=== PATIENT | female | born 1950 | race Caucasian/White ===

== ENCOUNTER 2016-08-29 15:30 | Outpatient (CLI) | payer MEDICARE, BC | END 2016-08-29 15:31 | disposition home or self-care (01) | DX: Z12.31 Encounter for screening mammogram for malignant neoplasm of breast (principal) ==

== ENCOUNTER 2016-12-27 13:44 | Outpatient (CLI) | payer MEDICARE, BC ==
--- NOTE | 2016-12-27 17:54 | MRI Report ---
EXAM: MRI CERVICAL SPINE WITHOUT CONTRAST EXAM DATE: 12/27/2016 02:07 PM. CLINICAL HISTORY: STRAIN OF MUSCLE FASCIA TENDON AT NECK LEVEL. COMPARISONS: MR cervical spine 09/29/2011. TECHNIQUE: Multiplanar, multisequence T1-weighted and fluid-sensitive sequences of the cervical spine without contrast. Other: None. FINDINGS: Neurologic Structures: There is mild flattening of the ventral aspect of the cervical cord seen at C4 -C5 and C5-C6 with no definite T2 signal hyperintensity seen. The remainder of the cervical cord appe ars normal in contour, caliber, and signal intensity. Alignment: Normal. No scoliosis or spondylolisthesis. Bone Marrow: No gross fractures or bone lesions. No marrow edema. Interspace Levels/Facets: C1-C2: Unremarkable on sagittal sequences. C2-C3: No significant endplate degenerative changes. Disk height appears preserved. Disk desiccation. Minimal posterior disk osteophyte complex slight effacement of the ventral thecal sac. Right uncover tebral osteophyte and arthritic facet disease producing mild right neural foraminal narrowing. Findin gs appear progressed from 09/29/2011. C3-C4: No significant endplate degenerative changes. Disk height appears preserved. Disk desiccation. Minimal posterior disk osteophyte complex with slight effacement of the ventral thecal sac. Bilatera l uncovertebral osteophyte and arthritic facet disease producing moderate right and mild left neural foramina narrowing. Findings appear progressed. C4-C5: Minimal endplate degenerative changes. Mild loss of disk height. Disk desiccation. Small poste rior disk osteophyte complex, ligamentum flavum thickening, and arthritic facet disease producing mod erate spinal canal stenosis. Bilateral uncovertebral osteophyte and arthritic facet disease producing severe left and moderate to severe right neural foraminal narrowing. Findings have progressed. C5-C6: Mild endplate degenerative changes. Mild loss of disk height. Disk desiccation. Small posterio r disk osteophyte complex as well as ligamentum flavum thickening producing moderate spinal canal ridge nosis. Bilateral uncovertebral osteophyte and arthritic facet disease producing severe bilateral neur al foraminal narrowing. Findings appear progressed. C6-C7: No significant endplate degenerative changes. Minimal loss of disk height. Disk desiccation. S mall posterior disk osteophyte complex producing mild spinal canal stenosis. Bilateral uncovertebral osteophyte and degenerative facet disease producing moderate left and mild right foraminal narrowing. Findings appear progressed. C7-T1: Unremarkable. Musculature: Normal. No edema or fatty atrophy. Other: The paravertebral and prevertebral soft tissues are normal. IMPRESSION: 1. Mild flattening of the ventral aspect of the cervical cord seen at C4-C5 and C5-C6 with no definit e T2 signal hyperintensity seen. 2. Mild multilevel degenerative changes at appear progressed from 09/29/2011. C2-C3: No significant spinal canal stenosis. Mild right neural foraminal narrowing. C3-C4: No significant spinal canal stenosis. Moderate right and mild left neural foramina narrowing. C4-C5: Moderate spinal canal stenosis. Severe left and moderate to severe right neural foraminal narr owing. C5-C6: Moderate spinal canal stenosis. Severe bilateral neural foraminal narrowing. C6-C7: Mild spinal canal stenosis. Moderate left and mild right foraminal narrowing. [facility] Referring Provider Line: [phone] SITE ID: [id number]
== END 2016-12-27 13:45 | disposition home or self-care (01) ==
LOC: DI 13:44
PROVIDERS: ATTEND Family Medicine
DX: M47.892 Other spondylosis, cervical region (principal); M50.31 Other cervical disc degeneration, high cervical region
CPT/HCPCS: 72141

== ENCOUNTER 2017-04-18 13:55 | Outpatient (CLI) | payer MEDICARE, BC ==
[2017-04-18 14:33] LABS: EOSINOPHILS # (AUTO) 0.2 10^3/uL (0.0-0.7); EOSINOPHILS % (AUTO) 4.4 %; HCT - HEMATOCRIT 40.6 % (37.0-47.0); HGB - HEMOGLOBIN 13.8 g/dL (12.0-16.0); LYMPHOCYTES # (AUTO) 1.4 10^3/uL (1.5-3.5); LYMPHOCYTES % (AUTO) 37.2 %; MEAN CORPUSCULAR HEMOGLOBIN 32.9 pg (27.0-31.0); MEAN CORPUSCULAR VOLUME 96.6 fL (81.0-99.0); MEAN PLATELET VOLUME 8.9 fL (7.9-10.8); MONOCYTES # (AUTO) 0.3 10^3/uL (0.0-1.0); MONOCYTES % (AUTO) 7.7 %; NEUTROPHILS # (AUTO) 1.8 10^3/uL (1.5-6.6); NEUTROPHILS % (AUTO) 49.7 %; NUCLEATED RED BLOOD CELLS AUTO 0.1 /100WBC; RED CELL DISTRIBUTION WIDTH 12.9 % (12.0-15.0); UNCORRECTED WHITE BLOOD COUNT 3.7 x10^3/uL; WHITE BLOOD COUNT 3.7 x10^3/uL (4.8-10.8)
[2017-04-18 14:45] LABS: ALBUMIN/GLOBULIN RATIO 1.8 (1.0-2.2); BILIRUBIN,TOTAL 0.7 mg/dL (0.2-1.0); CALCIUM 9.4 mg/dL (8.5-10.3); CREATININE 0.7 mg/dL (0.4-1.0); TOTAL PROTEIN 7.5 g/dL (6.7-8.2)
[2017-04-18] MEDS ORDERED: IOPAMIDOL-300 50 ML VIAL PO ONE (15:28)
[2017-04-18] MEDS ORDERED: IOPAMIDOL-300 100 ML VIAL IVP ONE (15:28)
--- NOTE | 2017-04-18 20:01 | CT Report ---
CT ABDOMEN AND PELVIS WITH CONTRAST: 04/18/2017 CLINICAL INDICATION: History of small bowel obstruction, pain. Axial CT images of the abdomen and pelvis were obtained with 100 mL Isovue-300 intravenously as well as oral contrast. In accordance with CT protocol optimization, one or more of the following dose reduction techniques w ere utilized for this exam: automated exposure control, adjustment of mA and/or KV based on patient size, or use of iterative reconstructive technique. COMPARISON: 08/14/2015 Limited evaluation of the lung bases is unremarkable. ABDOMEN: Postoperative changes are stable. Incidental renal cysts are noted. The liver, spleen, pa ncreas, and adrenal glands appear unremarkable. No recurrent bowel dilatation, free gas, or free flu id is seen. No abdominal adenopathy is appreciated. PELVIS: The pelvic organs appear unremarkable. A few scattered sigmoid diverticula are seen, withou t CT evidence of diverticulitis. No free fluid or pelvic adenopathy is appreciated. Osseous structures demonstrate degenerative changes. IMPRESSION: STABLE POSTOPERATIVE CHANGES. NO EVIDENCE OF RECURRENT SMALL BOWEL OBSTRUCTION. JOB #: [id number] EXT JOB #:[id number]
== END 2017-04-18 13:56 | disposition home or self-care (01) ==
LOC: LAB 13:55
PROVIDERS: ATTEND Family Medicine
DX: K56.60 Unspecified intestinal obstruction (principal); R10.9 Unspecified abdominal pain
CPT/HCPCS: 36415; 74177; 80053; 83690; 85025; Q9967

== ENCOUNTER 2017-07-25 14:47 | Outpatient (CLI) | payer MEDICARE, BC ==
[2017-07-25 15:07] LABS: BASOPHILS % (AUTO) 1.2 %; EOSINOPHILS # (AUTO) 0.2 10^3/uL (0.0-0.7); EOSINOPHILS % (AUTO) 5.4 %; HCT - HEMATOCRIT 38.8 % (37.0-47.0); HGB - HEMOGLOBIN 13.3 g/dL (12.0-16.0); LYMPHOCYTES # (AUTO) 1.1 10^3/uL (1.5-3.5); LYMPHOCYTES % (AUTO) 36.7 %; MEAN CORPUSCULAR HEMOGLOBIN 33.2 pg (27.0-31.0); MEAN CORPUSCULAR HGB CONC 34.2 g/dL (32.0-36.0); MEAN CORPUSCULAR VOLUME 96.9 fL (81.0-99.0); MEAN PLATELET VOLUME 8.4 fL (7.9-10.8); MONOCYTES # (AUTO) 0.3 10^3/uL (0.0-1.0); MONOCYTES % (AUTO) 9.5 %; NEUTROPHILS # (AUTO) 1.4 10^3/uL (1.5-6.6); NEUTROPHILS % (AUTO) 47.2 %; NUCLEATED RED BLOOD CELLS AUTO 0.1 /100WBC; RED BLOOD COUNT 4.01 10^6/uL (4.20-5.40); RED CELL DISTRIBUTION WIDTH 13.3 % (12.0-15.0)
[2017-07-25 15:34] LABS: ALBUMIN/GLOBULIN RATIO 1.6 (1.0-2.2); BILIRUBIN,TOTAL 0.8 mg/dL (0.2-1.0); BUN - BLOOD UREA NITROGEN 12 mg/dL (6-20); CALCIUM 9.2 mg/dL (8.5-10.3); CARBON DIOXIDE - CO2 27 mmol/L (21-32); CHLORIDE 100 mmol/L (101-111); CHOL/HDL RATIO 2.2 (<4.4); CHOLESTEROL 246 mg/dL; CREATININE 0.7 mg/dL (0.4-1.0); GFR - MDRD 83 (>89); GLUCOSE 109 mg/dL (70-100); HDL CHOLESTEROL 114 mg/dL; LDL/HDL RATIO 1.1 (<4.4); SODIUM 139 mmol/L (135-145); TOTAL PROTEIN 6.8 g/dL (6.7-8.2); TRIGLYCERIDES 41 mg/dL; VLDL CHOLESTEROL 8 mg/dL
== END 2017-07-25 14:48 | disposition home or self-care (01) ==
LOC: LAB 14:47
PROVIDERS: ATTEND Family Medicine
DX: R10.9 Unspecified abdominal pain (principal); E03.9 Hypothyroidism, unspecified; E78.5 Hyperlipidemia, unspecified
CPT/HCPCS: 36415; 80053; 80061; 84443; 85025

== ENCOUNTER 2017-08-03 12:58 | Outpatient (CLI) | payer MEDICARE, BC ==
--- NOTE | 2017-08-04 14:32 | DEXA Report ---
DEXA: 08/03/2017 CLINICAL INDICATION: Postmenopausal. TECHNIQUE: Dual energy x-ray absorptiometry (DXA) was performed on a [employer] system. Regions measured are the AP spine, femoral neck, and, if needed, forearm. COMPARISON: None. In accordance with the International Society for Clinical Densitometry (ISCD) guidelines, data from previous exams may be reanalyzed using current recommendations and techniques. This is done to allow a more accurate basis for comparison with the current study. FINDINGS: The data for the lumbar spine is as follows: REGION BMD (g/cm/cm) T-SCORE Z-SCORE L1 0.767 -3.0 -1.1 L2 0.813 -3.2 -1.3 L3 0.910 -2.4 -0.5 L4 0.949 -2.1 -0.1 TOTAL 0.867 -2.6 -0.6 NOTE: All evaluable vertebrae are used for classification. The data for the hip is as follows: REGION BMD (g/cm/cm) T-SCORE Z-SCORE Neck 0.633 -2.9 -1.1 TOTAL 0.593 -3.3 -1.7 NOTE: The femoral neck or total proximal femur, whichever is lowest, is used for classification. IMPRESSION WHO CLASSIFICATION BASED ON THE INTERNATIONAL REFERENCE STANDARD IS OSTEOPOROSIS. FRACTURE RISK IS HIGH. RECOMMENDATION: Patients with diagnosis of osteoporosis or osteopenia should have regular bone mineral density assessment. For those eligible for Medicare, routine testing is allowed once every 2 years. Testing frequency can be increased for patients who have rapidly progressing disease or for those who are receiving medical therapy to restore bone mass. COMMENT: World Health Organization (WHO) definitions for osteoporosis and osteopenia: NORMAL BMD: T-score at 1.0 or higher, fracture risk is low. OSTEOPENIA BMD: T-score between 1.0 and -2.5, fracture risk is increased. OSTEOPOROSIS BMD: T-score at 2.5 or lower, fracture risk high. National Osteoporosis Foundation recommends: 1. Obtain adequate dietary calcium (at least 1200 mg per day) and vitamin D (400 -800 international units per day). 2. Participate, as appropriate, in regular weightbearing and muscle- strengthening exercise. 3. Avoid tobacco use and reduce alcohol and caffeine intake. 4. For more detailed information see the website at www.NOF.org. TD: 08/03/2017 17:54 MTDD
== END 2017-08-03 12:59 | disposition home or self-care (01) ==
LOC: DI 12:58
PROVIDERS: ATTEND Family Medicine
DX: M81.0 Age-related osteoporosis without current pathological fracture (principal)
CPT/HCPCS: 77080

== ENCOUNTER 2017-09-07 14:40 | Outpatient (CLI) | payer MEDICARE, BC ==
--- NOTE | 2017-09-08 16:30 | Mammography Report ---
DATE OF SERVICE: 09/07/2017 DIGITAL SCREENING MAMMOGRAM: 09/07/2017 CLINICAL INDICATION: A 67-year-old with history of late childbearing, for screening. COMPARISON: 08/2016, 07/2015, 07/2014, 07/2013, 06/2012, 06/2011, 03/2010. TECHNIQUE: Routine CC and MLO projections were obtained of the breasts. FINDINGS: The breasts demonstrate scattered fibroglandular densities bilaterally. Coarse and punctate, typically benign calcifications are present. No suspicious masses, clustered microcalcifications, or regions of architectural distortion are identified. IMPRESSION: BENIGN FINDINGS. RECOMMENDATION: ROUTINE ANNUAL SCREENING UNLESS OTHERWISE CLINICALLY INDICATED. BIRADS CATEGORY 2-BENIGN FINDINGS. STANDARD QUALIFYING STATEMENTS: 1. This examination was reviewed with the aid of Computer-Aided Detection (CAD). 2. A negative or benign imaging report should not delay biopsy if clinically suspicious findings are present. Consider surgical consultation if warranted. More than 5% of cancers are not identified by imaging. 3. Dense breasts may obscure an underlying neoplasm. TD: 09/08/2017 16:29
== END 2017-09-07 14:41 | disposition home or self-care (01) ==
LOC: DI 14:40
PROVIDERS: ATTEND Family Medicine
DX: Z12.31 Encounter for screening mammogram for malignant neoplasm of breast (principal)
CPT/HCPCS: 77067

== ENCOUNTER 2017-11-14 14:44 | Outpatient (CLI) | payer MEDICARE, BC | END 2017-11-14 14:45 | disposition critical access hospital (66) | LOC: EMS 14:44 | PROVIDERS: ATTEND Surgery | DX: L50.9 Urticaria, unspecified (principal) | CPT/HCPCS: A0425; A0429 ==

== ENCOUNTER 2017-11-14 15:00 | Emergency (ER) | payer MEDICARE, BC ==
[2017-11-14 15:12] VITALS: BP 110/72
[2017-11-14] MEDS ORDERED: DEXAMETHASONE 10 MG/ML VIAL IVP STA (15:36)
[2017-11-14] MEDS ORDERED: CETIRIZINE 10 MG TABLET PO STA (15:40)
[2017-11-14] MEDS ORDERED: EPINEPHrine 1 MG/ML AMP IM STA (15:40)
--- NOTE | 2017-11-14 17:02 | ED Physician Documentation ---
PD HPI SKIN - Stated complaint Stated Complaint: MED REACTION - Chief complaint Chief Complaint: Allergic Rx - History obtained from History obtained from: Patient, EMS - History of Present Illness Timing - onset: Today (took dose of Avalox for ear infection and got a rash within an hour or so. No other new meds. Had been using Ciprodex for the ear without improvement. PMD Rx the Avalox instead.) Timing - details: Abrupt onset, Still present Location: [place] Quality / character: Itchy, Burning Associated symptoms: Other (some feeling of swelling in throat or needing to clear her throat. No dyspnea per se.). No: Fever, Facial swelling, Dyspnea Similar symptoms before: Has not had sx before Recently seen: Not recently seen Review of Systems Constitutional: denies: Fever, Chills Ears: reports: Ear pain. denies: Drainage/discharge Nose: denies: Rhinorrhea / runny nose, Congestion Throat: denies: Sore throat, Swollen tonsils Cardiac: denies: Chest pain / pressure, Palpitations Respiratory: denies: Dyspnea, Cough GI: denies: Abdominal Pain, Nausea, Vomiting, Diarrhea Skin: reports: Rash Neurologic: denies: Near syncope, Syncope, Altered mental status PD PAST MEDICAL HISTORY - Past Medical History Past Medical History: Yes Cardiovascular: High cholesterol Respiratory: None Endocrine/Autoimmune: Type 2 diabetes, HyPOthyroidism GI: GERD, Hiatal hernia, Chronic diarrhea, Other : None HEENT: None Psych: Depression, Anxiety, Obsessive compulsive disorder Musculoskeletal: Chronic back pain Derm: None - Past Surgical History Past Surgical History: Yes General: Cholecystectomy, Appendectomy, Other Ortho: Other HEENT: Cataracts, Detached retina repair - Present Medications Home Medications: Ambulatory Orders Medication Instructions Recorded Confirmed Atorvastatin [Lipitor] 10 mg PO QPM 10/02/13 09/09/15 Cholecalciferol (Vitamin D3) 4,000 unit PO QPM 10/02/13 09/09/15 [Vitamin D] Cyclosporine [Restasis] 1 drop OP DAILY 10/02/13 09/09/15 Levothyroxine Sodium [Synthroid] 50 mcg PO DAILY 10/02/13 09/09/15 Epinephrine [Epipen 2-Ct] 0.3 mg SQ ONCE PRN 05/04/15 09/09/15 Esomeprazole Magnesium [Nexium] 40 mg PO DAILY 05/04/15 09/09/15 Fluticasone [Flonase] 1 spray MARGARETH BID 05/04/15 09/09/15 Levocetirizine Dihydrochloride 5 mg PO DAILY 05/04/15 09/09/15 [Xyzal] Dexamethasone [Decadron] 4 mg PO DAILY #3 tablet 11/14/17 Neomycin/Polymyx/Hc Otic Drops 3 drops OT TID #1 bottle 11/14/17 [Cortisporin Ear Susp] hydrOXYzine PAMOATE [Vistaril] 25 mg PO Q8H PRN #15 capsule 11/14/17 - Allergies Allergies/Adverse Reactions: Allergies Allergy/AdvReac Type Severity Reaction Status Date / Time Penicillins Allergy Intermediate Rash Verified 10/02/13 09:06 latex Allergy Mild Itching Verified 10/02/13 09:06 cortisone Allergy Anaphylaxis Verified 05/03/15 23:43 diphenhydramine HCl * Allergy Edema Verified 05/03/15 23:48 [From Benadryl] hydrocodone Allergy Unknown Verified 05/03/15 23:44 lidocaine Allergy Hives Verified 05/03/15 23:43 oxycodone Allergy Unknown Verified 05/03/15 23:43 - Social History Does the pt smoke?: No Smoking Status: Never smoker Does the pt drink ETOH?: Yes Does the pt have substance abuse?: No - Immunizations Immunizations are current?: Yes - POLST Patient has POLST: No PD ED PE NORMAL - Vitals Vital signs reviewed: Yes - General General: Alert and oriented X 3, No acute distress, Well developed/nourished - HEENT HEENT: Ears normal (i don't really see infection of the ear canal at this point) , Pharynx benign (with just minimal edema of the uvula. Nor voice and breathing. ) - Neck Neck: Supple, no meningeal sign, No adenopathy - Cardiac Cardiac: RRR, No murmur - Respiratory Respiratory: Clear bilaterally - Abdomen Abdomen: Soft, Non tender - Back Back: No CVA TTP - Derm Derm: Normal color, Warm and dry, Other (diffuse hives. ) - Extremities Extremities: No tenderness to palpate, Normal ROM s pain, No edema, No calf tenderness / cord - Neuro Neuro: Alert and oriented X 3 Results - Vitals Vitals: Oxygen O2 Source Room air PD MEDICAL DECISION MAKING - ED course Complexity details: re-evaluated patient, considered differential (hives have mostly gone away. She is concerned about hives returning and I told her they likely will undulate some for a day. She seems okay with the longer antihistamines, just had had reaction (face swelling) from benadryl, or correlated with it anyway. ), d/w patient Departure - Departure Disposition: 01 Home, Self Care Clinical Impression: Allergic reaction caused by a drug Qualifiers: Encounter type: initial encounter Qualified Code(s): T78.40XA - Allergy, unspecified, initial encounter Condition: Stable Record reviewed to determine appropriate education?: Yes Instructions: ED Drug React Allergic Follow-Up: Mehdi Jamil DO [Primary Care Provider] - Prescriptions: Dexamethasone [Decadron] 4 mg PO DAILY #3 tablet hydrOXYzine PAMOATE [Vistaril] 25 mg PO Q8H PRN #15 capsule PRN Reason: Itching Neomycin/Polymyx/Hc Otic Drops [Cortisporin Ear Susp] 3 drops OT TID #1 bottle Comments: Discontinue the Avelox as this presumably is the cause of the reaction. Use dexamethasone steroid 4 mg tablet daily for 3 more days. Continue your Xyzal antihistamine. You can use shorter acting antihistamine hydroxyzine if needed for itchiness. For the ear for now you can use Cortisporin eardrops. Allow the rash and reaction to dissipate over the next couple of days. Contact Dr. Jamil regarding next antibiotic to use for the ear infection if it is not improved. Discharge Date/Time: 11/14/17 18:07
[2017-11-14] MEDS ORDERED: hydrOXYzine PAMOATE 25 MG CAPSULE PO STA (17:42)
== END 2017-11-14 18:07 | disposition home or self-care (01) ==
LOC: EDUNIT# → ED 15:00
DX: R22.9 Localized swelling, mass and lump, unspecified (principal); L29.9 Pruritus, unspecified; T50.995A Adverse effect of other drugs, medicaments and biological substances, initial encounter; E11.9 Type 2 diabetes mellitus without complications; E78.00 Pure hypercholesterolemia, unspecified; E03.9 Hypothyroidism, unspecified
CPT/HCPCS: 96372; 96374; 99283; A9270

== ENCOUNTER 2018-04-02 09:48 | Outpatient (CLI) | payer MEDICARE, BC ==
[2018-04-02 10:09] LABS: BASOPHILS % (AUTO) 0.9 %; EOSINOPHILS # (AUTO) 0.2 10^3/uL (0.0-0.7); HGB - HEMOGLOBIN 12.9 g/dL (12.0-16.0); LYMPHOCYTES # (AUTO) 1.3 10^3/uL (1.5-3.5); LYMPHOCYTES % (AUTO) 37.3 %; MEAN CORPUSCULAR HEMOGLOBIN 33.8 pg (27.0-31.0); MEAN CORPUSCULAR HGB CONC 34.5 g/dL (32.0-36.0); MEAN CORPUSCULAR VOLUME 97.9 fL (81.0-99.0); MEAN PLATELET VOLUME 8.1 fL (7.9-10.8); MONOCYTES # (AUTO) 0.4 10^3/uL (0.0-1.0); MONOCYTES % (AUTO) 10.1 %; NEUTROPHILS # (AUTO) 1.6 10^3/uL (1.5-6.6); NEUTROPHILS % (AUTO) 44.7 %; PLT - PLATELET COUNT 174 10^3/uL (130-450); RED BLOOD COUNT 3.82 10^6/uL (4.20-5.40); RED CELL DISTRIBUTION WIDTH 13.4 % (12.0-15.0); WHITE BLOOD COUNT 3.5 x10^3/uL (4.8-10.8)
[2018-04-02 10:27] LABS: HB2 TOTAL 14.1 g/dL; HEMOGLOBIN A1C 0.51 g/dL; HEMOGLOBIN A1C % 5.5 % (4.6-6.2)
[2018-04-02 10:39] LABS: ALBUMIN 4.1 g/dL (3.2-5.5); ALBUMIN/GLOBULIN RATIO 1.7 (1.0-2.2); ALKALINE PHOSPHATASE 35 IU/L (42-121); ALT ALANINE AMINOTRANSFERASE 13 IU/L (10-60); AST ASPARTATE AMINOTRANSFERASE 15 IU/L (10-42); BILIRUBIN,TOTAL 0.6 mg/dL (0.2-1.0); BUN - BLOOD UREA NITROGEN 14 mg/dL (6-20); CARBON DIOXIDE - CO2 28 mmol/L (21-32); CHLORIDE 104 mmol/L (101-111); CHOL/HDL RATIO 1.8 (<4.4); CHOLESTEROL 172 mg/dL; CREATININE 0.8 mg/dL (0.4-1.0); GFR - MDRD 71 (>89); GLUCOSE 106 mg/dL (70-100); HDL CHOLESTEROL 93 mg/dL; SODIUM 139 mmol/L (135-145); TOTAL PROTEIN 6.5 g/dL (6.7-8.2)
[2018-04-02 10:59] LABS: LDL CHOLESTEROL,DIRECT 53 mg/dL; LDLD/HDL RATIO 0.6 (<4.4)
== END 2018-04-02 09:49 | disposition home or self-care (01) ==
LOC: LAB 09:48
PROVIDERS: ATTEND Family Medicine
DX: E03.9 Hypothyroidism, unspecified (principal); E78.5 Hyperlipidemia, unspecified
CPT/HCPCS: 36415; 80053; 80061; 83036; 83721; 84443; 85025

== ENCOUNTER 2018-04-07 11:36 | Outpatient (CLI) | payer MEDICARE, BC ==
[2018-04-07] MEDS ORDERED: IOPAMIDOL-300 50 ML VIAL ONE (11:40)
[2018-04-07] MEDS ORDERED: IOPAMIDOL-300 100 ML VIAL ONE (11:40)
[2018-04-07] MEDS ORDERED: IOPAMIDOL-300 50 ML VIAL PO ONE (12:30)
[2018-04-07] MEDS ORDERED: IOPAMIDOL-300 100 ML VIAL IVP ONE (12:56)
--- NOTE | 2018-04-07 22:52 | CT Report ---
Reason: ABDOMINAL BLOATING, HX OF SMALL BOWEL OBSTRUCTION Procedure Date: 04/07/2018 Accession Number: [id number] / [id number] Procedure: CT - Abdomen/Pelvis W/ CPT Code: FULL RESULT: EXAM: CT ABDOMEN AND PELVIS EXAM DATE: 04/07/2018 12:57 PM. CLINICAL HISTORY: Abdominal bloating, history of small bowel obstruction. COMPARISONS: ABDOMEN/PELVIS W/ 04/18/2017. TECHNIQUE: Routine helical CT imaging was performed through the abdomen and pelvis. IV contrast: Yes . Enteric contrast: Yes. Reconstructions: Coronal and sagittal. In accordance with CT protocol optimization, one or more of the following dose reduction techniques were utilized for this exam: automated exposure control, adjustment of mA and/or KV based on patient size, or use of iterative reconstructive technique. FINDINGS: Lung Bases: Unremarkable. Liver: Unremarkable. No suspicious masses. Gallbladder/Bile Ducts: Unremarkable post cholecystectomy. Spleen: Unremarkable. Pancreas: Unremarkable. Adrenal Glands: Unremarkable. Kidneys: Tiny left renal cyst. No suspicious masses or hydronephrosis. Peritoneal Cavity/Bowel: No bowel obstruction or inflammatory process seen. No free air or significant free fluid. No masses or adenopathy. The appendix is probably out. No excessive stool burden. Pelvic Organs: Bladder, uterus, and adnexa appear unremarkable. Vasculature: No aneurysms or other significant abnormality. Bones: No significant abnormality. Other: None. IMPRESSION: 1. No acute inflammatory or obstructive process seen in the abdomen or pelvis. 2. Post cholecystectomy. [facility]
== END 2018-04-07 11:37 | disposition home or self-care (01) ==
LOC: DI 11:36
PROVIDERS: ATTEND Family Medicine
DX: R14.0 Abdominal distension (gaseous) (principal); Z90.49 Acquired absence of other specified parts of digestive tract
CPT/HCPCS: 74177; Q9967

== ENCOUNTER 2018-06-20 20:46 | Outpatient (CLI) | payer MEDICARE, BC | END 2018-06-20 20:47 | disposition home or self-care (01) | LOC: LAB 20:46 | PROVIDERS: ATTEND Family Medicine | DX: E03.9 Hypothyroidism, unspecified (principal) | CPT/HCPCS: 84443 ==

== ENCOUNTER 2018-08-06 18:43 | Outpatient (CLI) | payer MEDICARE, BC ==
--- NOTE | 2018-08-07 16:52 | XRAY Report ---
Reason: Back pain Procedure Date: 08/06/2018 Accession Number: [id number] / [id number] Procedure: XR - Thoracic Spine 2 View CPT Code: FULL RESULT: EXAM: THORACIC SPINE RADIOGRAPHY EXAM DATE: 08/06/2018 07:33 PM. CLINICAL HISTORY: Back pain. COMPARISON: None. TECHNIQUE: 2 views. FINDINGS: Alignment: Normal. No spondylolisthesis or scoliosis. Bones: Osteopenia noted. No acute fracture lines are seen. No focal abnormal osseous lesions. Disks: Multilevel mild to moderate disk height loss with endplate sclerosis and disk osteophyte seen within the thoracic spine. Soft Tissues: Cholecystectomy clips noted. The visualized lungs and cardiomediastinal silhouette are normal. IMPRESSION: 1. Osteopenia without evident acute fracture or dislocation of the thoracic spine. 2. Multilevel degenerative disk disease evident. [facility]
--- NOTE | 2018-08-07 16:54 | XRAY Report ---
Reason: Back pain. R/o compression fx Procedure Date: 08/06/2018 Accession Number: [id number] / [id number] Procedure: XR - Lumbar Spine Complete CPT Code: FULL RESULT: EXAM: LUMBOSACRAL SPINE RADIOGRAPHY EXAM DATE: 08/06/2018 07:33 PM. CLINICAL HISTORY: Back pain. R/o compression fx. COMPARISONS: CT 04/07/2018. TECHNIQUE: 4 views. FINDINGS: Alignment: Minimal 4 mm anterolisthesis of L4 and L5 appears unchanged. No other spondylolisthesis seen. No scoliosis. Bones: Five agx-ktu-xstsxjs lumbar vertebral bodies are present. Osteopenia noted. No acute fracture lines are evident. No focal abnormal osseous lesions. Disks: Multilevel mild disk height loss with disk osteophytes. Facets: Multilevel mild to moderate degenerative facet hypertrophy is unchanged. Sacroiliac Joints: Unremarkable. Soft Tissues: Normal. The visualized bowel gas pattern is normal. IMPRESSION: 1. Osteopenia without evidence for acute fracture or dislocation of the lumbar spine. 2. Multilevel degenerative changes as described above, largely unchanged compared to prior. [facility]
== END 2018-08-06 18:44 | disposition home or self-care (01) ==
LOC: DI 18:43
PROVIDERS: ATTEND Family Medicine
DX: M51.34 Other intervertebral disc degeneration, thoracic region (principal); M85.88 Other specified disorders of bone density and structure, other site; M51.36 Other intervertebral disc degeneration, lumbar region; M47.9 Spondylosis, unspecified; M43.16 Spondylolisthesis, lumbar region; M51.37 Other intervertebral disc degeneration, lumbosacral region
CPT/HCPCS: 72070; 72110

== ENCOUNTER 2018-10-22 15:25 | Outpatient (CLI) | payer MEDICARE, BC ==
--- NOTE | 2018-10-22 16:55 | Mammography Report ---
Reason: SCREENING MAMMO Procedure Date: 10/22/2018 Accession Number: [id number] / [id number] Procedure: [facility] - Screening Mammo w/[facility]real CPT Code: FULL RESULT: EXAM: Screening Mammo w/[facility]real DATE: 10/22/2018 3:54 PM CLINICAL HISTORY: Routine screening. No reported personal history of breast cancer. Family history breast cancer in an aunt at age 45. TECHNIQUE: Bilateral CC and MLO views were obtained. COMPARISON: 09/07/2017 through 07/29/2013 FINDINGS: The breasts demonstrate scattered fibroglandular densities bilaterally. Bilateral breasts: There are no suspicious masses, calcifications or areas of distortion. IMPRESSION: Negative examination RECOMMENDATION: Routine annual screening unless otherwise clinically indicated. BI-RADS CATEGORY 1: Negative STANDARD QUALIFYING STATEMENTS: 1. This examination was not reviewed with the aid of Computer-Aided Detection (CAD). 2. A negative or benign imaging report should not preclude biopsy if clinically suspicious findings are present. 3. Dense breasts may obscure an underlying neoplasm. 4. This examination was reviewed with the aid of 3D breast imaging (tomosynthesis).
== END 2018-10-22 15:26 | disposition home or self-care (01) ==
LOC: DI 15:25
DX: Z12.31 Encounter for screening mammogram for malignant neoplasm of breast (principal); Z80.3 Family history of malignant neoplasm of breast
CPT/HCPCS: 77063; 77067

== ENCOUNTER 2018-11-29 08:55 | Outpatient (CLI) | payer MEDICARE, BC ==
--- NOTE | 2018-11-30 12:14 | XRAY Report ---
Reason: ABDOMINAL PAIN,EPIGASTRIC Procedure Date: 11/29/2018 Accession Number: [id number] / [id number] Procedure: FL - UGI W/Air CPT Code: FULL RESULT: EXAM: UPPER GI SERIES EXAM DATE: 11/29/2018 10:09 AM. CLINICAL HISTORY: Abdominal pain, epigastric. COMPARISONS: None. TECHNIQUE: Routine double contrast upper gastrointestinal technique. Fluoroscopy Time: 3 minutes 2 seconds. Number of fluoroscopy images: 26. FINDINGS: Esophageal Motility: Normal peristaltic stripping wave. Esophageal Mucosa: Normal. No ulcerations or masses. Gastroesophageal Junction: Normal. No hernia, reflux is noted. Stomach: Normal gastric mucosal pattern. No ulcers identified. Duodenum: Normal duodenal mucosal pattern. No ulcers or diverticula identified. Other: None. IMPRESSION: Esophageal reflux with no ulcer detected. [facility]
== END 2018-11-29 08:56 | disposition home or self-care (01) ==
LOC: DI 08:55
PROVIDERS: ATTEND Family Medicine
DX: R10.13 Epigastric pain (principal); K21.9 Gastro-esophageal reflux disease without esophagitis
CPT/HCPCS: 74246

== ENCOUNTER 2018-12-10 19:18 | Outpatient (CLI) | payer MEDICARE, BC ==
[2018-12-10 19:40] LABS: BASOPHILS % (AUTO) 0.7 %; EOSINOPHILS # (AUTO) 0.1 10^3/uL (0.0-0.7); EOSINOPHILS % (AUTO) 3.1 %; HGB - HEMOGLOBIN 14.1 g/dL (12.0-16.0); LYMPHOCYTES # (AUTO) 1.3 10^3/uL (1.5-3.5); LYMPHOCYTES % (AUTO) 26.2 %; MEAN CORPUSCULAR HEMOGLOBIN 32.8 pg (27.0-31.0); MEAN CORPUSCULAR VOLUME 96.7 fL (81.0-99.0); MEAN PLATELET VOLUME 8.6 fL (7.9-10.8); MONOCYTES # (AUTO) 0.4 10^3/uL (0.0-1.0); MONOCYTES % (AUTO) 7.4 %; NEUTROPHILS % (AUTO) 62.6 %; PLT - PLATELET COUNT 203 10^3/uL (130-450); RED BLOOD COUNT 4.29 10^6/uL (4.20-5.40); RED CELL DISTRIBUTION WIDTH 13.2 % (12.0-15.0); WHITE BLOOD COUNT 4.8 x10^3/uL (4.8-10.8)
[2018-12-10 19:53] LABS: ALBUMIN 4.4 g/dL (3.2-5.5); ALBUMIN/GLOBULIN RATIO 1.5 (1.0-2.2); BILIRUBIN,TOTAL 0.6 mg/dL (0.2-1.0); CALCIUM 9.1 mg/dL (8.5-10.3); CREATININE 0.8 mg/dL (0.4-1.0); TOTAL PROTEIN 7.4 g/dL (6.7-8.2)
== END 2018-12-10 19:19 | disposition home or self-care (01) ==
LOC: LAB 19:18
PROVIDERS: ATTEND Family Medicine
DX: R10.13 Epigastric pain (principal)
CPT/HCPCS: 36415; 80053; 82150; 83690; 85025

== ENCOUNTER 2019-01-29 17:47 | Outpatient (CLI) | payer MEDICARE, BC ==
--- NOTE | 2019-01-30 10:41 | XRAY Report ---
Reason: Arthritis, Lumbar Spine Procedure Date: 01/29/2019 Accession Number: [id number] / [id number] Procedure: XR - Lumbar Spine 2 View CPT Code: FULL RESULT: EXAM: LUMBOSACRAL SPINE RADIOGRAPHY EXAM DATE: 01/29/2019 06:27 PM. CLINICAL HISTORY: Arthritis, Lumbar Spine. COMPARISONS: Lumbar spine complete 08/06/2018 7:18 PM. TECHNIQUE: 2 views. FINDINGS: Alignment: There are 5 mm of anterolisthesis of L4 on L5, likely in setting of pars defect, appearance is relatively stable. Bones: Five zar-cxf-sbxwdtw lumbar vertebral bodies are present. The bones are qualitatively osteopenic; this limits evaluation for underlying fractures or masses. No fracture is detected. Disks: Normal. Disk heights are maintained. Facets: Suggestion of pars defects at the L4 level, possibly at the L5 level with at least moderate degenerative changes at L4 and L5. Sacroiliac Joints: Unremarkable. Soft Tissues: Normal. The visualized bowel gas pattern is normal. 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 [facility]
== END 2019-01-29 17:48 | disposition home or self-care (01) ==
LOC: DI 17:47
PROVIDERS: ATTEND Family Medicine
DX: M47.816 Spondylosis without myelopathy or radiculopathy, lumbar region (principal); M43.06 Spondylolysis, lumbar region
CPT/HCPCS: 72100

== ENCOUNTER 2019-10-10 12:23 | Outpatient (CLI) | payer MEDICARE, BC ==
[2019-10-10 12:41] LABS: BASOPHILS % (AUTO) 0.9 %; EOSINOPHILS # (AUTO) 0.2 10^3/uL (0.0-0.7); EOSINOPHILS % (AUTO) 3.6 %; HGB - HEMOGLOBIN 13.9 g/dL (12.0-16.0); LYMPHOCYTES # (AUTO) 1.1 10^3/uL (1.5-3.5); LYMPHOCYTES % (AUTO) 25.1 %; MEAN CORPUSCULAR HEMOGLOBIN 33.8 pg (27.0-31.0); MEAN CORPUSCULAR HGB CONC 34.6 g/dL (32.0-36.0); MEAN CORPUSCULAR VOLUME 97.8 fL (81.0-99.0); MONOCYTES # (AUTO) 0.4 10^3/uL (0.0-1.0); MONOCYTES % (AUTO) 9.6 %; NEUTROPHILS # (AUTO) 2.7 10^3/uL (1.5-6.6); NEUTROPHILS % (AUTO) 60.6 %; PLT - PLATELET COUNT 193 10^3/uL (130-450); RED BLOOD COUNT 4.11 10^6/uL (4.20-5.40); RED CELL DISTRIBUTION WIDTH 12.3 % (12.0-15.0); WHITE BLOOD COUNT 4.5 x10^3/uL (4.8-10.8)
[2019-10-10 12:56] LABS: HB2 TOTAL 14.3 g/dL; HEMOGLOBIN A1C 0.57 g/dL; HEMOGLOBIN A1C % 5.8 % (4.6-6.2)
[2019-10-10 12:59] LABS: ALBUMIN 4.4 g/dL (3.2-5.5); ALBUMIN/GLOBULIN RATIO 1.5 (1.0-2.2); ALKALINE PHOSPHATASE 41 IU/L (42-121); ALT ALANINE AMINOTRANSFERASE 13 IU/L (10-60); AST ASPARTATE AMINOTRANSFERASE 17 IU/L (10-42); BILIRUBIN,TOTAL 0.8 mg/dL (0.2-1.0); BUN - BLOOD UREA NITROGEN 19 mg/dL (6-20); CALCIUM 9.3 mg/dL (8.5-10.3); CARBON DIOXIDE - CO2 29 mmol/L (21-32); CHLORIDE 100 mmol/L (101-111); CHOL/HDL RATIO 1.8 (<4.4); CHOLESTEROL 179 mg/dL; CREATININE 0.7 mg/dL (0.4-1.0); GFR - MDRD 82 (>89); GLUCOSE 122 mg/dL (70-100); HDL CHOLESTEROL 102 mg/dL; LDL CHOLESTEROL,CALCULATED 68 mg/dL; LDL/HDL RATIO 0.7 (<4.4); SODIUM 137 mmol/L (135-145); TOTAL PROTEIN 7.4 g/dL (6.7-8.2); VLDL CHOLESTEROL 9 mg/dL
== END 2019-10-10 12:24 | disposition home or self-care (01) ==
LOC: LAB 12:23
PROVIDERS: ATTEND Family Medicine
DX: R73.01 Impaired fasting glucose (principal); E78.5 Hyperlipidemia, unspecified; E03.9 Hypothyroidism, unspecified; R10.13 Epigastric pain
CPT/HCPCS: 36415; 80053; 80061; 83036; 83721; 84443; 85025

== ENCOUNTER 2019-12-13 11:19 | Outpatient (CLI) | payer MEDICARE, BC ==
[2019-12-13] MEDS ORDERED: IOVERSOL 320 50 ML VIAL ONE (11:27)
[2019-12-13] MEDS ORDERED: IOVERSOL 320 100 ML VIAL IVP ONE (11:27)
[2019-12-13 11:34] LABS: BASOPHILS % (AUTO) 0.8 %; EOSINOPHILS # (AUTO) 0.2 10^3/uL (0.0-0.7); HGB - HEMOGLOBIN 13.1 g/dL (12.0-16.0); LYMPHOCYTES # (AUTO) 1.3 10^3/uL (1.5-3.5); LYMPHOCYTES % (AUTO) 32.2 %; MEAN CORPUSCULAR HEMOGLOBIN 33.3 pg (27.0-31.0); MEAN CORPUSCULAR HGB CONC 33.9 g/dL (32.0-36.0); MEAN CORPUSCULAR VOLUME 98.5 fL (81.0-99.0); MEAN PLATELET VOLUME 10.2 fL (7.9-10.8); MONOCYTES # (AUTO) 0.4 10^3/uL (0.0-1.0); MONOCYTES % (AUTO) 9.3 %; NEUTROPHILS # (AUTO) 2.1 10^3/uL (1.5-6.6); NEUTROPHILS % (AUTO) 51.4 %; PLT - PLATELET COUNT 184 10^3/uL (130-450); RED BLOOD COUNT 3.93 10^6/uL (4.20-5.40); RED CELL DISTRIBUTION WIDTH 12.4 % (12.0-15.0)
[2019-12-13 11:46] LABS: ALBUMIN 4.2 g/dL (3.2-5.5); ALBUMIN/GLOBULIN RATIO 1.5 (1.0-2.2); BILIRUBIN,TOTAL 0.4 mg/dL (0.2-1.0); CALCIUM 8.5 mg/dL (8.5-10.3); CREATININE 0.8 mg/dL (0.4-1.0)
[2019-12-13] MEDS: IOVERSOL 320 50 ML VIAL PO ONE (13:05)
[2019-12-13] MEDS: IOVERSOL 320 100 ML VIAL IVP ONE (13:05)
--- NOTE | 2019-12-13 14:00 | CT Report ---
Reason: ABDOMINAL PAIN,HX OF SMALL BOWEL OBSTRUCTION Procedure Date: 12/13/2019 Accession Number: [id number] / [id number] Procedure: CT - Abdomen/Pelvis W CPT Code: Addended Final Report FULL RESULT: EXAM: CT ABDOMEN AND PELVIS EXAM DATE: 12/13/2019 01:03 PM. CLINICAL HISTORY: ABDOMINAL PAIN, HX OF SMALL BOWEL OBSTRUCTION. COMPARISONS: CT ABDOMEN/PELVIS W/ 04/07/2018 12:[address] ABDOMEN/PELVIS W/ 04/18/2017 3:18 PM. TECHNIQUE: Routine helical CT imaging was performed through the abdomen and pelvis. IV contrast: 100 cc Optiray 320. Enteric contrast: Yes. Reconstructions: Coronal and sagittal. In accordance with CT protocol optimization, one or more of the following dose reduction techniques were utilized for this exam: automated exposure control, adjustment of mA and/or KV based on patient size, or use of iterative reconstructive technique. FINDINGS: Lung Bases: Unremarkable. Liver: Normal. No masses. Gallbladder/Bile Ducts: The gallbladder is surgically absent. Mildly prominent bile ducts are unchanged compared to the prior exam on 04/07/2018, likely within normal limits for postcholecystectomy state. The extrahepatic common bile duct measures up to 10 mm, unchanged. Spleen: Normal. Pancreas: Normal. Adrenal Glands: Normal. Kidneys: No masses or hydronephrosis. The extrarenal pelvis is enlarged bilaterally, right greater than left, unchanged. Peritoneal Cavity/Bowel: No free fluid, free air or adenopathy. No masses or acute inflammatory process. No dilated loops of small bowel. Enteric contrast has reached the distal ileum. There is a moderate amount of formed stool in the colon. The appendix is not well visualized, but there is no inflammatory change or fluid adjacent to the cecum to suggest acute appendicitis. There are a few surgical clips near the cecum, which may be a sign of prior appendectomy. Pelvic Organs: Normal. The bladder and visualized pelvic organs are within normal limits. Vasculature: No aneurysms or other significant abnormality. Bones: No significant abnormality. Other: None. IMPRESSION: 1. No acute intra-abdominal or pelvic abnormality identified. No evidence of small bowel obstruction. 2. Status post cholecystectomy. [facility] The call report notification system was initiated by Dr. Wade Hui at 01:58 PM on 12/13/2019. ADDENDUM: 12/13/19 14:06 The above call report findings were discussed with Mehdi Jamil by Dr. Wade Hui at 02:06 PM on 12/13/2019.
== END 2019-12-13 11:20 | disposition home or self-care (01) ==
LOC: LAB 11:19
PROVIDERS: ATTEND Family Medicine
DX: R10.9 Unspecified abdominal pain (principal); Z87.19 Personal history of other diseases of the digestive system; Z90.49 Acquired absence of other specified parts of digestive tract
CPT/HCPCS: 36415; 74177; 80053; 83690; 85025; Q9967

== ENCOUNTER 2020-07-23 12:14 | Outpatient (CLI) | payer MEDICARE, BC ==
[2020-07-23 17:49] LABS: BASOPHILS % (AUTO) 0.6 %; EOSINOPHILS # (AUTO) 0.1 10^3/uL (0.0-0.7); EOSINOPHILS % (AUTO) 2.7 %; HCT - HEMATOCRIT 42.8 % (37.0-47.0); HGB - HEMOGLOBIN 13.9 g/dL (12.0-16.0); LYMPHOCYTES # (AUTO) 1.3 10^3/uL (1.5-3.5); LYMPHOCYTES % (AUTO) 24.4 %; MEAN CORPUSCULAR HEMOGLOBIN 32.9 pg (27.0-31.0); MEAN CORPUSCULAR HGB CONC 32.5 g/dL (32.0-36.0); MEAN CORPUSCULAR VOLUME 101.4 fL (81.0-99.0); MEAN PLATELET VOLUME 11.5 fL (7.9-10.8); MONOCYTES # (AUTO) 0.5 10^3/uL (0.0-1.0); MONOCYTES % (AUTO) 8.8 %; NEUTROPHILS # (AUTO) 3.3 10^3/uL (1.5-6.6); NEUTROPHILS % (AUTO) 63.5 %; PLT - PLATELET COUNT 209 10^3/uL (130-450); RED BLOOD COUNT 4.22 10^6/uL (4.20-5.40); RED CELL DISTRIBUTION WIDTH 12.8 % (12.0-15.0); WHITE BLOOD COUNT 5.2 x10^3/uL (4.8-10.8)
[2020-07-23 18:17] LABS: ALBUMIN 4.4 g/dL (3.2-5.5); ALBUMIN/GLOBULIN RATIO 1.5 (1.0-2.2); ALKALINE PHOSPHATASE 40 IU/L (42-121); ALT ALANINE AMINOTRANSFERASE 11 IU/L (10-60); AST ASPARTATE AMINOTRANSFERASE 15 IU/L (10-42); BILIRUBIN,TOTAL 0.9 mg/dL (0.2-1.0); BUN - BLOOD UREA NITROGEN 12 mg/dL (6-20); CALCIUM 9.8 mg/dL (8.5-10.3); CARBON DIOXIDE - CO2 27 mmol/L (21-32); CHLORIDE 104 mmol/L (101-111); CHOL/HDL RATIO 1.8 (<4.4); CHOLESTEROL 182 mg/dL; CREATININE 0.8 mg/dL (0.4-1.0); GFR - MDRD 71 (>89); GLUCOSE 103 mg/dL (70-100); HDL CHOLESTEROL 100 mg/dL; LDL CHOLESTEROL,CALCULATED 64 mg/dL; LDL/HDL RATIO 0.6 (<4.4); POTASSIUM 3.9 mmol/L (3.5-5.0); SODIUM 141 mmol/L (135-145); TOTAL PROTEIN 7.4 g/dL (6.7-8.2); TRIGLYCERIDES 90 mg/dL; VLDL CHOLESTEROL 18 mg/dL
[2020-07-23 18:24] LABS: THYROID STIMULATING HORMONE 0.97 uIU/mL (0.34-5.60)
[2020-07-23 20:48] LABS: ESTIMATED AVERAGE GLUCOSE 111 mg/dL (70-100); HEMOGLOBIN A1c% 5.5 % (4.27-6.07)
== END 2020-07-23 23:59 | disposition home or self-care (01) ==
LOC: LAB.WCP 12:14
PROVIDERS: ATTEND Family Medicine
DX: R73.01 Impaired fasting glucose (principal); E78.5 Hyperlipidemia, unspecified; E03.9 Hypothyroidism, unspecified; K21.9 Gastro-esophageal reflux disease without esophagitis
CPT/HCPCS: 36415; 80053; 80061; 83036; 83721; 84443; 85025

== ENCOUNTER 2020-09-09 14:54 | Outpatient (CLI) | payer MEDICARE, BC ==
--- NOTE | 2020-09-09 16:45 | DEXA Report ---
PROCEDURE: Dexa Spine and/or Hip INDICATIONS: BONE DISORDER TECHNIQUE: Dual energy x-ray absorptiometry (DXA) was performed on a [employer] System. Regions measur ed are the AP Spine, femoral neck, and if needed forearm. COMPARISON: 08/03/2017. FINDINGS: Lumbar Spine: Bone Mineral Density 0.824 g/cm/cm,T score -3.0, osteoporosis Left Hip: Bone Mineral Density 0.650 g/cm/cm,T score -2.8, osteoporosis Left Femoral Neck: Bone Mineral Density 0.6-0 g/cm/cm, T score -3.0, osteoporosis (T score greater or equal to -1.0: NORMAL) (T score from -1.1 to -2.4: OSTEOPENIA) (T score less than or equal to -2.5 to: OSTEOPOROSIS) Impression: Osteoporosis. Bone mineral density has decreased 9.6% in the interval since prior exam ob tained 08/03/2017. Patients with diagnosis of osteoporosis or osteopenia should have regular bone mineral density assess ment. For those eligible for Medicare, routine testing is allowed once every 2 years. Testing frequ ency can be increased for patients who have rapidly progressing disease or for those who are receivin g medical therapy to restore bone mass. Reviewed by: Chiquis Haas MD, PhD on 09/09/2020 4:43 PM PST Approved by: Chiquis Haas MD, PhD on 09/09/2020 4:43 PM PST Station ID: [id number]
== END 2020-09-09 14:55 | disposition home or self-care (01) ==
LOC: DI 14:54
PROVIDERS: ATTEND Family Medicine
DX: M85.88 Other specified disorders of bone density and structure, other site (principal); M81.0 Age-related osteoporosis without current pathological fracture

== ENCOUNTER 2021-03-04 20:37 | Outpatient (CLI) | payer MEDICARE, BC ==
[2021-03-04 21:09] LABS: ALBUMIN 4.5 g/dL (3.2-5.5); ALBUMIN/GLOBULIN RATIO 1.7 (1.0-2.2); BILIRUBIN,TOTAL 0.6 mg/dL (0.2-1.0); CALCIUM 8.8 mg/dL (8.5-10.3); CREATININE 0.8 mg/dL (0.4-1.0); POTASSIUM 3.4 mmol/L (3.5-5.0); TOTAL PROTEIN 7.2 g/dL (6.7-8.2)
== END 2021-03-04 20:38 | disposition home or self-care (01) ==
LOC: LAB 20:37
PROVIDERS: ATTEND Family Medicine
DX: B35.1 Tinea unguium (principal)
CPT/HCPCS: 36415; 80053

== ENCOUNTER 2021-05-04 15:51 | Outpatient (CLI) | payer MEDICARE, BC ==
[2021-05-04 18:00] LABS: BASOPHILS % (AUTO) 0.6 %; EOSINOPHILS # (AUTO) 0.1 10^3/uL (0.0-0.7); EOSINOPHILS % (AUTO) 2.4 %; HCT - HEMATOCRIT 40.4 % (37.0-47.0); HGB - HEMOGLOBIN 13.2 g/dL (12.0-16.0); MEAN CORPUSCULAR HEMOGLOBIN 31.7 pg (27.0-31.0); MEAN CORPUSCULAR HGB CONC 32.7 g/dL (32.0-36.0); MEAN CORPUSCULAR VOLUME 97.1 fL (81.0-99.0); MONOCYTES # (AUTO) 0.4 10^3/uL (0.0-1.0); MONOCYTES % (AUTO) 7.5 %; NEUTROPHILS # (AUTO) 3.4 10^3/uL (1.5-6.6); NEUTROPHILS % (AUTO) 68.3 %; PLT - PLATELET COUNT 204 10^3/uL (130-450); RED BLOOD COUNT 4.16 10^6/uL (4.20-5.40); WHITE BLOOD COUNT 4.9 x10^3/uL (4.8-10.8)
[2021-05-04 18:18] LABS: ALBUMIN 4.3 g/dL (3.2-5.5); ALBUMIN/GLOBULIN RATIO 1.5 (1.0-2.2); BILIRUBIN,TOTAL 0.9 mg/dL (0.2-1.0); CREATININE 0.8 mg/dL (0.4-1.0); POTASSIUM 4.2 mmol/L (3.5-5.0); TOTAL PROTEIN 7.1 g/dL (6.7-8.2)
== END 2021-05-04 23:59 | disposition home or self-care (01) ==
LOC: LAB.WCP 15:51
PROVIDERS: ATTEND Family Medicine
DX: R10.9 Unspecified abdominal pain (principal); Z20.822 Contact with and (suspected) exposure to COVID-19
CPT/HCPCS: 36415; 80053; 83690; 85025; U0004

== ENCOUNTER 2021-08-28 13:53 | Outpatient (CLI) | payer MEDICARE, BC ==
[2021-08-28 14:17] LABS: BASOPHILS % (AUTO) 0.9 %; EOSINOPHILS # (AUTO) 0.2 10^3/uL (0.0-0.7); EOSINOPHILS % (AUTO) 3.8 %; HCT - HEMATOCRIT 39.3 % (37.0-47.0); LYMPHOCYTES # (AUTO) 1.3 10^3/uL (1.5-3.5); LYMPHOCYTES % (AUTO) 29.7 %; MEAN CORPUSCULAR HEMOGLOBIN 31.7 pg (27.0-31.0); MEAN CORPUSCULAR HGB CONC 33.1 g/dL (32.0-36.0); MEAN CORPUSCULAR VOLUME 95.9 fL (81.0-99.0); MEAN PLATELET VOLUME 10.2 fL (7.9-10.8); MONOCYTES # (AUTO) 0.4 10^3/uL (0.0-1.0); MONOCYTES % (AUTO) 9.4 %; NEUTROPHILS # (AUTO) 2.4 10^3/uL (1.5-6.6); PLT - PLATELET COUNT 191 10^3/uL (130-450); RED CELL DISTRIBUTION WIDTH 12.8 % (12.0-15.0); WHITE BLOOD COUNT 4.2 x10^3/uL (4.8-10.8)
[2021-08-28 14:51] LABS: THYROID STIMULATING HORMONE 0.66 uIU/mL (0.34-5.60)
[2021-08-28 16:37] LABS: ALBUMIN 4.3 g/dL (3.2-5.5); ALBUMIN/GLOBULIN RATIO 1.6 (1.0-2.2); ALKALINE PHOSPHATASE 33 IU/L (42-121); ALT ALANINE AMINOTRANSFERASE 18 IU/L (10-60); AST ASPARTATE AMINOTRANSFERASE 22 IU/L (10-42); BILIRUBIN,TOTAL 0.8 mg/dL (0.2-1.0); BUN - BLOOD UREA NITROGEN 13 mg/dL (6-20); CALCIUM 9.1 mg/dL (8.5-10.3); CARBON DIOXIDE - CO2 27 mmol/L (21-32); CHLORIDE 98 mmol/L (101-111); CHOL/HDL RATIO 1.8 (<4.4); CHOLESTEROL 191 mg/dL; CREATININE 0.8 mg/dL (0.4-1.0); GFR - MDRD 70 (>89); GLUCOSE 87 mg/dL (70-100); HDL CHOLESTEROL 107 mg/dL; LDL CHOLESTEROL,CALCULATED 71 mg/dL; LDL/HDL RATIO 0.7 (<4.4); POTASSIUM 4.4 mmol/L (3.5-5.0); SODIUM 134 mmol/L (135-145); TRIGLYCERIDES 66 mg/dL; VLDL CHOLESTEROL 13 mg/dL
[2021-08-29 10:28] LABS: ESTIMATED AVERAGE GLUCOSE 120 mg/dL (70-100); HEMOGLOBIN A1c% 5.8 % (4.27-6.07)
== END 2021-08-28 13:54 | disposition home or self-care (01) ==
LOC: LAB 13:53
PROVIDERS: ATTEND Family Medicine
DX: E78.5 Hyperlipidemia, unspecified (principal); R73.01 Impaired fasting glucose; E03.9 Hypothyroidism, unspecified; K58.9 Irritable bowel syndrome, unspecified
CPT/HCPCS: 36415; 80053; 80061; 83036; 83721; 84443; 85025